=== PATIENT | male | born 1980 | race Caucasian/White ===

== ENCOUNTER 2017-08-19 06:39 | Inpatient (IN) | payer OTHER ==
[~2017-08-19] VITALS: Ht 188 cm; Wt 96.2 kg
[~2017-08-19 06:39] MED LIST: Z.0.NO CURRENT MEDS
[2017-08-19 11:20] VITALS: BP 129/95; PULSE 74; RESP 18; TEMP 98; O2SAT 100
[2017-08-19] MEDS ORDERED: ACETAMINOPHEN 325 MG TAB PO PRN (18:00)
[2017-08-19] MEDS ORDERED: ALUMINUM/MAGNESIUM/SIMETH 30 ML CUP PO PRN (18:00)
[2017-08-19] MEDS ORDERED: MAGNESIUM HYDROXIDE SUSP 30 ML CUP PO PRN (18:00)
[2017-08-19] MEDS ORDERED: hydrOXYzine HCL 50 MG TAB PO PRN (18:00)
[2017-08-19] MEDS ORDERED: diphenhydrAMINE HCL 50 MG/ML VIAL - HS PRN IM (18:00)
[2017-08-19 18:01] VITALS: BP 145/115; PULSE 75; RESP 17; TEMP 98.1; O2SAT 100
[2017-08-19] MEDS: NICOTINE 21 MG/24 HR PATCH T-DERMAL SCH (18:37)
[2017-08-20 05:49] VITALS: BP 134/86; PULSE 76; RESP 20; TEMP 97.5; O2SAT 100
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
[2017-08-20] MEDS: NICOTINE 21 MG/24 HR PATCH T-DERMAL SCH (09:06)
[2017-08-20 10:40] LABS: BICARBONATE 24.9 MEQ/L (21.0-32.0); BLOOD UREA NITROGEN 17 MG/DL (7-18); CALCIUM 9.8 MG/DL (8.5-10.1); CHLORIDE 107 MEQ/L (98-107); CREATININE 1.32 MG/DL (0.60-1.30); GLOMERULAR FILTRATION RATE 61 ML/MIN (>89); GLUCOSE,RANDOM 94 MG/DL (74-106); SODIUM (NA) 139 MEQ/L (136-145)
[2017-08-20 10:42] LABS: CHOLESTEROL 206 MG/DL (120-200)
[2017-08-20 10:44] LABS: CHOLESTEROL/ HDL RATIO 4.11 RATIO; HDL CHOLESTEROL 50.1 MG/DL (40.0-60.0); LDL CHOLESTEROL 104 MG/DL (0-99); TRIGLYCERIDES 258 MG/DL (42-150)
[2017-08-20 15:10] LABS: HEMOGLOBIN A1C 5.5 % (4.3-6.0)
[2017-08-20 17:00] VITALS: BP 147/87; PULSE 83; RESP 19; TEMP 98.7; O2SAT 98
[2017-08-20] MEDS: QUEtiapine FUMARATE 100 MG TAB PO SCH (20:26)
[2017-08-20] MEDS: REMOVE OLD NICOTINE PATCH T-DERMAL SCH (20:56)
[2017-08-21 05:46] VITALS: BP 131/83; PULSE 85; RESP 18; TEMP 98.7; O2SAT 99
[2017-08-21] MEDS: buPROPion HCL 100 MG SUSTAINED RELEASE TAB PO SCH (08:26)
[2017-08-21] MEDS: NICOTINE 21 MG/24 HR PATCH T-DERMAL SCH (08:27)
[2017-08-21 12:56] LABS: BICARBONATE 28.5 MEQ/L (21.0-32.0); CALCIUM 9.5 MG/DL (8.5-10.1); CREATININE 1.28 MG/DL (0.60-1.30)
--- NOTE | 2017-08-21 17:08 | HHI.PYPN ---
Subjective Remarks Patient was seen and case discussed with nursing. Patient describes his long history of polysubstance abuse with opiates being his drug of choice. He appears to be very interested in finally getting sober and is excited about rehabilitation at [facility]. His behaving well on the unit. Friendly, helping other patients eat dinner. Patient does the circumstances leading to his overdose and does not mention his legal trouble. Personality disorder a possibility in addition to possible bipolar disorder Mental Status Examination Appearance: Disheveled (mild) Consciousness: Alert Orientation: x4 Motor Activity: Normal gait, Other (no motor abnormalities noted) Speech: Unremarkable Language: Adequate Fund of Knowledge: Adequate Attention and Concentration: Adequate Memory: Unremarkable (grossly intact on clinical exam) Mood: Good Affect: Appropriate Thought Process & Associations: Logical, Linear Thought Content: Appropriate Hallucination Type: None Delusion Type: None Suicidal Ideation: No Suicidal Plan: No Suicidal Intention: No Homicidal Ideation: No Homicidal Plan: No Homicidal Intention: No Insight: Poor Judgment: Impulsive Results Labs Test 08/21/17 12:12 Blood Urea Nitrogen 13 MG/DL Creatinine 1.28 MG/DL Random Glucose 106 MG/DL Calcium Level 9.5 MG/DL Sodium Level 139 MEQ/L Potassium Level 3.9 MEQ/L Chloride Level 102 MEQ/L Carbon Dioxide Level 28.5 MEQ/L Anion Gap 9 MEQ/L Estimat Glomerular Filtration Rate 63 ML/MIN Vitals/IOs Vital Signs Date Time Temp Pulse Resp B/P (MAP) Pulse Ox O2 Delivery O2 Flow Rate FiO2 08/21/17 05:46 98.7 85 18 131/83 (99) 99 Assessment & Plan Problem List: (1) Adjustment disorder with mixed disturbance of emotions and conduct ICD Codes: F43.25 - Adjustment disorder with mixed disturbance of emotions and conduct (2) Cocaine abuse ICD Codes: F14.10 - Cocaine abuse, uncomplicated Assessment & Plan Personality disorder a possibility in addition to possible bipolar disorder. Continue current treatment Justification for Cont. Inpt. Patient will decompensate in a less restrictive setting Request HC Surrog/Guard Advoc?: Jon Sterling DO Aug 21, 2017 17:08
[2017-08-21] MEDS ORDERED: BISACODYL EC 5 MG TABEC PO PRN (18:15)
[2017-08-21 18:38] VITALS: BP 150/95; PULSE 75; RESP 18; TEMP 98.7; O2SAT 99
[2017-08-21] MEDS: diphenhydrAMINE HCL 50 MG CAP - HS PRN PO (20:29)
[2017-08-21] MEDS: QUEtiapine FUMARATE 100 MG TAB PO SCH (20:30)
[2017-08-21] MEDS: REMOVE OLD NICOTINE PATCH T-DERMAL SCH (20:30)
[2017-08-22] MEDS: diphenhydrAMINE HCL 50 MG CAP - HS PRN PO (04:58)
[2017-08-22 05:33] VITALS: BP 129/88; PULSE 85; RESP 17; TEMP 98.5; O2SAT 97
[2017-08-22] MEDS: buPROPion HCL 100 MG SUSTAINED RELEASE TAB PO SCH (08:20)
[2017-08-22] MEDS: NICOTINE 21 MG/24 HR PATCH T-DERMAL SCH (08:20)
--- NOTE | 2017-08-22 14:08 | HHI.PYPN ---
Subjective Remarks Patient was seen and case discussed with nursing. Patient insists that Vistaril is more effective for anxiety despite Atarax being the same medication. He says he wants to avoid benzodiazepines. Patient remains bright and cheerful. He is quite extroverted and social. He went to the groups and found that stimulating. Continues to state that he is not depressed and he is feeling "better." And no longer has suicidal ideation intent or plan. Remains intent on quitting substance use Mental Status Examination Appearance: Disheveled (mild) Consciousness: Alert Orientation: x4 Motor Activity: Normal gait, Other (no motor abnormalities noted) Speech: Unremarkable Language: Adequate Fund of Knowledge: Adequate Attention and Concentration: Adequate Memory: Unremarkable (grossly intact on clinical exam) Mood: Good Affect: Other (mildly elevated) Thought Process & Associations: Logical, Linear Thought Content: Appropriate Hallucination Type: None Delusion Type: None Suicidal Ideation: No Suicidal Plan: No Suicidal Intention: No Homicidal Ideation: No Homicidal Plan: No Homicidal Intention: No Insight: Poor Judgment: Impulsive Results Vitals/IOs Vital Signs Date Time Temp Pulse Resp B/P (MAP) Pulse Ox O2 Delivery O2 Flow Rate FiO2 08/22/17 08:02 08/22/17 05:33 98.5 85 17 97 Assessment & Plan Problem List: (1) Adjustment disorder with mixed disturbance of emotions and conduct ICD Codes: F43.25 - Adjustment disorder with mixed disturbance of emotions and conduct (2) Cocaine abuse ICD Codes: F14.10 - Cocaine abuse, uncomplicated Assessment & Plan Continue current treatment plan Justification for Cont. Inpt. Patient would decompensate in a less restrictive setting Request HC Surrog/Guard Advoc?: No Jon Silveira DO Aug 22, 2017 14:08
[2017-08-22 16:46] VITALS: BP 162/89; PULSE 90; RESP 18; TEMP 99.1; O2SAT 99
[2017-08-22] MEDS: QUEtiapine FUMARATE 100 MG TAB PO SCH (20:23)
[2017-08-22] MEDS: REMOVE OLD NICOTINE PATCH T-DERMAL SCH (20:23)
[2017-08-23 05:58] VITALS: BP 140/77; PULSE 72; RESP 18; TEMP 97.9; O2SAT 100
[2017-08-23] MEDS: buPROPion HCL 100 MG SUSTAINED RELEASE TAB PO SCH (08:34)
[2017-08-23] MEDS: NICOTINE 21 MG/24 HR PATCH T-DERMAL SCH (08:34)
--- NOTE | 2017-08-23 15:20 | HHI.PYPN ---
Subjective Remarks Patient seen and examined with nurse. Chart reviewed. Case discussed with nursing staff. No behavioral issues reported per nursing staff. On my examination today, patient is in much better spirits when compared to my interaction with him before the weekend. He describes his mood subjectively is much better today. He now says that his presenting overdose was a suicidal gesture with the goal of getting into some sort of chemical dependency treatment. He says that he knew there was a high likelihood of rescue when he made the attempt. He is future oriented now and interested in pursuing residential chemical dependency treatment if this can be arranged. Although interested in discharge as soon as possible, he is agreeable to remaining on the unit for an additional day if needed to arrange for transfer directly to a residential chemical dependency treatment facility. He denies suicidal or homicidal ideation at this time. No psychotic symptoms. Denies side effects from medications. No physical complaints. Review of Systems Except as stated in HPI: all other systems reviewed are Neg Mental Status Examination Appearance: Appropriate Consciousness: Alert Orientation: x4 Motor Activity: Normal gait, Other (no abnormal motor movements noted.) Speech: Unremarkable Language: Adequate Fund of Knowledge: Adequate Attention and Concentration: Adequate Memory: Unremarkable Mood: Good Affect: Appropriate (full and reactive) Thought Process & Associations: Logical, Linear Thought Content: Appropriate Hallucination Type: None Delusion Type: None Suicidal Ideation: No Suicidal Plan: No Suicidal Intention: No Homicidal Ideation: No Homicidal Plan: No Homicidal Intention: No Insight: Fair Judgment: Adequate (fair at best) Results Labs Labs reviewed. GFR remains decreased but stable. Vitals/IOs Vital Signs Date Time Temp Pulse Resp B/P (MAP) Pulse Ox O2 Delivery O2 Flow Rate FiO2 08/23/17 05:58 97.9 72 18 140/77 (98) 100 Assessment & Plan Problem List: (1) Adjustment disorder with mixed disturbance of emotions and conduct ICD Codes: F43.25 - Adjustment disorder with mixed disturbance of emotions and conduct (2) Cocaine abuse ICD Codes: F14.10 - Cocaine abuse, uncomplicated Assessment & Plan Continue current psychotropics as ordered. Continue to monitor on the inpatient unit. Continue other medications and care as ordered. Justification for Cont. Inpt. Risk for decompensation. Discharge Planning Case discussed with counselor. Jennifer is reviewing patient's case for possible admission to that facility. Anticipate discharge tomorrow, Wednesday. Request HC Surrog/Guard Advoc?: No Henri Harley MD Aug 23, 2017 15:20
[2017-08-23 18:04] VITALS: BP 153/94; PULSE 102; RESP 16; TEMP 99.2; O2SAT 99
[2017-08-23] MEDS: REMOVE OLD NICOTINE PATCH T-DERMAL SCH (21:00)
[2017-08-23] MEDS: diphenhydrAMINE HCL 50 MG CAP - HS PRN PO (21:28)
[2017-08-23] MEDS: QUEtiapine FUMARATE 100 MG TAB PO SCH (21:28)
[2017-08-24 06:07] VITALS: BP 141/73; PULSE 72; RESP 18; TEMP 98; O2SAT 98
[2017-08-24] MEDS: buPROPion HCL 100 MG SUSTAINED RELEASE TAB PO SCH (09:02)
[2017-08-24] MEDS: NICOTINE 21 MG/24 HR PATCH T-DERMAL SCH (09:03)
--- NOTE | 2017-08-24 11:10 | PD.TTN ---
Patient Problems 1. Discharge planning 2. Medication compliance 3. Knowledge deficit 4. Lack of coping skills Progress Toward Goals Provider Present: Dr. Mata Harley Provider Input: Dr. Harley's had his treatment team meeting to discuss patient's treatment plan, medication, and discharge. Patient is being discharged today. Patient will follow up with [facility] residential treatment program. Nurse(s) Input: Per patient's nurse Kaylee Jacobsen patient presents restless, guarded, denies suicidal and homicial ideation. Psychiatric Counselors Present: [facility] Input: Patient was seen on the unit. Patient presented anxious, agitated, restless, exit seeking, affect blunted. Patient's speech is clear, organized with pressure. Patient does not present internally stimulated or with any delusional content. Patient denies suicidal and homicidal ideation. Patient is medication compliant, eating and sleeping well. Patient is attempting to go to [facility] for inpatient residential treatment. Group Spec/RT/OT/RAMOS Present: RACHEL Strong Group Spec/RT/OT/RAMOS Input: Patient attends groups with fair participation. [facility]is [facility] Aug 24, 2017 11:10
--- NOTE | 2017-08-24 11:10 | PD.TTN ---
Patient Problems 1. Discharge planning 2. Medication compliance 3. Knowledge deficit 4. Lack of coping skills Progress Toward Goals Provider Present: Dr. Mata Harley Provider Input: Dr. Harley's had his treatment team meeting to discuss patient's treatment plan, medication, and discharge. Patient is being discharged today. Patient will follow up with [facility] residential treatment program. Nurse(s) Input: Per patient's nurse Kaylee Jacobsen patient presents restless, guarded, denies suicidal and homicial ideation. Psychiatric Counselors Present: Belkis [facility] Input: Patient was seen on the unit. Patient presented anxious, agitated, restless, exit seeking, affect blunted. Patient's speech is clear, organized with pressure. Patient does not present internally stimulated or with any delusional content. Patient denies suicidal and homicidal ideation. Patient is medication compliant, eating and sleeping well. Patient is attempting to go to [facility] for inpatient residential treatment. Group Spec/RT/OT/RAMOS Present: RACHEL Strong Group Spec/RT/OT/RAMOS Input: Patient attends groups with fair participation. Belkis Duran [facility] Aug 24, 2017 11:10
--- NOTE | 2017-08-24 11:10 | PD.TTN ---
Patient Problems 1. Discharge planning 2. Medication compliance 3. Knowledge deficit 4. Lack of coping skills Progress Toward Goals Provider Present: Dr. Mata Harley Provider Input: Dr. Harley's had his treatment team meeting to discuss patient's treatment plan, medication, and discharge. Patient is being discharged today. Patient will follow up with [facility] residential treatment program. Nurse(s) Input: Per patient's nurse Kaylee Jacobsen patient presents restless, guarded, denies suicidal and homicial ideation. Psychiatric Counselors Present: Belkis Duran [facility] Input: Patient was seen on the unit. Patient presented anxious, agitated, restless, exit seeking, affect blunted. Patient's speech is clear, organized with pressure. Patient does not present internally stimulated or with any delusional content. Patient denies suicidal and homicidal ideation. Patient is medication compliant, eating and sleeping well. Patient is attempting to go to [facility] for inpatient residential treatment. Group Spec/RT/OT/RAMOS Present: RACHEL Strong Group Spec/RT/OT/RAMOS Input: Patient attends groups with fair participation. Belkis Duran [facility] Aug 24, 2017 11:10
[2017-08-24] MEDS ORDERED: BUPR100CR PO (12:33)
[2017-08-24] MEDS ORDERED: QUET1TAB8 PO (12:33)
--- NOTE | 2017-08-24 12:34 | HHI.DS ---
Psychiatry Discharge Summary Inpatient Psychiatric care?: Yes Advance Directive: No Reason Not Provided: NA Mental Health AdvanceDirective: No Health Care Proxy: No Admission Admission Date Aug 19, 2017 at 09:58 Admission Diagnosis: (1) Adjustment disorder with mixed disturbance of emotions and conduct ICD Code: F43.25 - Adjustment disorder with mixed disturbance of emotions and conduct (2) Cocaine abuse ICD Code: F14.10 - Cocaine abuse, uncomplicated Brief History Mr. Bermudez is a 37-year-old male with a reported history of bipolar illness who presents in transfer from [facility] under a Macias act by [facility]'s office alleging that the patient took a handful of Seroquel pills to harm himself when his parents refuse to help him with financial issues. Notes from [facility] reviewed. Patient was medically cleared by the ED provider at outside hospital. Reviewing our own electronic medical record, I note that the patient was psychiatrically screened in 2011 following another overdose, although he denied that was suicidal at the time. He was sent to [facility]. Patient seen and examined with nurse. Chart reviewed. Case discussed with nursing staff. On my examination today, the patient presents with cluster B personality traits. He says that he took "a whole bottle of Seroquel because I felt backed into a corner. I owe money to the state and I don't want to go to alf. I asked a friend and my parents for money and they said no." He took the overdose impulsively but says that it was with suicidal intent "I wanted to check out." He says that he ruminates on suicide "all the time." He denies any suicidal plan or intent at this time however. He denies any urge to hurt himself on the inpatient psychiatric unit. Mood is depressed and anhedonic. He says that he has been unable to sleep at home because his mind is racing, although in context this sounds more like anxious rumination than manic racing thoughts. He says that when he does become depressed it is "unbearable, I don' t want to do anything." Endorses low energy and lack of motivation. No hypomanic or manic symptoms currently. The patient gives a questionable history of previous hypomanic or manic episodes, and it is difficult to disentangle from his substance use. He denies any audiovisual hallucinations at this time, and I can elicit no delusional material. The remainder of the psychiatric ROS is negative. The patient offers no physical complaints at this time. Past psychiatric history: The patient reports a history of bipolar illness. He reportedly follows with a provider by the name of will at [facility] in [place]. He is prescribed Wellbutrin, Seroquel and Vistaril, although his adherence with these agents is poor. He reports previous psychiatric admissions 3 years ago after he was "manic for a year" and also at age 19. He denies a history of suicide attempts. He reports previous trials of Depakote, which exacerbated jaw spasm, and lithium which made him feel like a zombie and experience constant suicidal ideation. Tobacco Use In Past 30 Days: 5 or More Cigarettes/Day Alcohol Use: Never Hospital Course Patient was admitted to a locked, inpatient psychiatric unit. Appropriate precautions were in place throughout patient's hospital stay. Patient seen and examined daily on the unit by psychiatry and also visited by counselor. Psychotropic medications were continued. Patient tolerated medications well without side effects. Patient had significant improvement in presenting psychiatric symptomatology. There was no evidence of any suicidality or homicidality on the inpatient unit. On the day of discharge: Patient seen and examined. Chart reviewed. Case discussed in treatment team. On my examination today, the patient is requesting discharge from the inpatient psychiatric unit today. Counselor informs me that [facility] still has not accepted the patient into their residential treatment program because of issues with the patient's insurer. I have discussed this with the patient, and it is his wish to leave the hospital today regardless of whether or not he proceeds directly to [facility]. He would like to retain the option of going there later on, and I have asked the counselor to include contact information for [facility] in patient's discharge paperwork. He denies any suicidal or homicidal ideation , intent or plan on direct questioning and contracts for safety. Mood is much improved versus admission and I can elicit no depressive or hypomanic/manic symptoms. No audiovisual hallucinations, and I can elicit no delusional material. He denies side effects from medications. No physical complaints. Weighing the acute, chronic, and protective factors and based on the available evidence, I basket maker to a reasonable degree of medical certainty that the patient is at low imminent risk of harm to self or others from a mental illness as defined under the Macias act and his level of function is adequate for outpatient care. He does not presently meet criteria for involuntary psychiatric hospitalization. Given that he is insisting on discharge from the inpatient unit today and given that he does not meet criteria for involuntary hospitalization, I must arrange for his discharge today with psychiatric follow- up as arranged by counselor. Substance use is likely a chronic risk factor for harm to self/others, and I have strongly recommended that the patient pursue chemical dependency evaluation and treatment. Patient is also to follow-up with primary care. I have counseled patient to return to the psychiatric emergency room for any concerning symptoms as part of a general safety plan Results Blood Pressure 141 / 73 Vital Signs Date Time Temp Pulse Resp B/P (MAP) Pulse Ox O2 Delivery O2 Flow Rate FiO2 08/24/17 06:07 98.0 72 18 141/73 (95) 98 Laboratory Results Test 08/20/17 09:48 Cholesterol Level 206 MG/DL (120-200) HDL Cholesterol 50.1 MG/DL (40.0-60.0) Hemoglobin A1c 5.5 % (4.3-6.0) LDL Cholesterol 104 MG/DL (0-99) Triglycerides Level 258 MG/DL (42-150) Summary of Procedures None done Imaging None done Pending results at discharge: No Medications # of Antipsychotic meds at D/C: 1 Approp Antipsych med options 1 - Minimum of three failed multiple trials of monotherapy. 2 - Documented plan to taper to monotherapy due to previous use of multiple meds OR cross-taper in progress at D/C. 3 - Documentation of augmentation of Clozapine. 4 - Justification other than those listed in allowable values 1-3, document here : Discharge Discharge Date: Aug 24, 2017 Discharge Diagnosis: (1) Adjustment disorder with mixed disturbance of emotions and conduct Diagnosis: Principal (resolved) ICD Code: F43.25 - Adjustment disorder with mixed disturbance of emotions and conduct (2) Cocaine abuse Diagnosis: Secondary (counseled to quit) ICD Code: F14.10 - Cocaine abuse, uncomplicated Pt Condition on Discharge: Stable Discharge Disposition: Discharge Home Discharge Instructions Diet Instructions: As Tolerated, No Restrictions Activities you can perform: Weight Bearing as Belinda Scheduled Appointment: as per counselor's notes New Orders: BASIC METABOLIC PROF - 1 Week New Medications: Bupropion HCl ER 12 HR (Wellbutrin SR 12 HR) 100 Mg Tab 100 MG PO DAILY for Mental Health for 10 Days, #10 TAB 2 Refills Quetiapine (Quetiapine) 100 Mg Tab 100 MG PO HS for Mental Health for 10 Days, TAB 2 Refills Discontinued Medications: Miscellaneous (No Current Meds) Misc Discharge Time <= 30 minutes Mental Status Examination Appearance: Appropriate Consciousness: Alert Orientation: x4 Motor Activity: Normal gait, Other (no motoric abnormalities noted) Speech: Unremarkable Language: Adequate Fund of Knowledge: Adequate Attention and Concentration: Adequate Memory: Unremarkable (grossly intact on clinical exam) Mood: Good Affect: Appropriate (remains full and reactive) Thought Process & Associations: Logical, Goal directed, Linear Thought Content: Appropriate Hallucination Type: None Delusion Type: None Suicidal Ideation: No Suicidal Plan: No Suicidal Intention: No Homicidal Ideation: No Homicidal Plan: No Homicidal Intention: No Insight: Fair Judgment: Adequate (fair at best) Discharge/Advance Care Plan Health Problems: (1) Adjustment disorder with mixed disturbance of emotions and conduct (2) Cocaine abuse Goals to promote your health * To prevent worsening of your condition and complications * To maintain your health at the optimal level Directions to meet your goals Take your medications as prescribed Follow your dietary instruction Follow activity as directed Keep your appointments as scheduled Take your immunizations and boosters as scheduled If your symptoms worsen call your PCP, if no PCP go to Urgent Care Center or Emergency Room For 17/05 questions related to your inpatient stay or results of tests pending at discharge, please contact Dr. Henri Harley at Smoking is Dangerous to Your Health. Avoid second hand smoking Henri Harley MD Aug 24, 2017 12:34
--- NOTE | 2017-08-24 12:34 | HHI.DS ---
Psychiatry Discharge Summary Inpatient Psychiatric care?: Yes Advance Directive: No Reason Not Provided: NA Mental Health AdvanceDirective: No Health Care Proxy: No Admission Admission Date Aug 19, 2017 at 09:58 Admission Diagnosis: (1) Adjustment disorder with mixed disturbance of emotions and conduct ICD Code: F43.25 - Adjustment disorder with mixed disturbance of emotions and conduct (2) Cocaine abuse ICD Code: F14.10 - Cocaine abuse, uncomplicated Brief History Mr. Bermudez is a 37-year-old male with a reported history of bipolar illness who presents in transfer from [facility] under a Macias act by [facility]'s office alleging that the patient took a handful of Seroquel pills to harm himself when his parents refuse to help him with financial issues. Notes from [facility] reviewed. Patient was medically cleared by the ED provider at outside hospital. Reviewing our own electronic medical record, I note that the patient was psychiatrically screened in 2011 following another overdose, although he denied that was suicidal at the time. He was sent to [facility]. Patient seen and examined with nurse. Chart reviewed. Case discussed with nursing staff. On my examination today, the patient presents with cluster B personality traits. He says that he took "a whole bottle of Seroquel because I felt backed into a corner. I owe money to the state and I don't want to go to [facility]. I asked a friend and my parents for money and they said no." He took the overdose impulsively but says that it was with suicidal intent "I wanted to check out." He says that he ruminates on suicide "all the time." He denies any suicidal plan or intent at this time however. He denies any urge to hurt himself on the inpatient psychiatric unit. Mood is depressed and anhedonic. He says that he has been unable to sleep at home because his mind is racing, although in context this sounds more like anxious rumination than manic racing thoughts. He says that when he does become depressed it is "unbearable, I don' t want to do anything." Endorses low energy and lack of motivation. No hypomanic or manic symptoms currently. The patient gives a questionable history of previous hypomanic or manic episodes, and it is difficult to disentangle from his substance use. He denies any audiovisual hallucinations at this time, and I can elicit no delusional material. The remainder of the psychiatric ROS is negative. The patient offers no physical complaints at this time. Past psychiatric history: The patient reports a history of bipolar illness. He reportedly follows with a provider by the name of will at [facility] in [place]. He is prescribed Wellbutrin, Seroquel and Vistaril, although his adherence with these agents is poor. He reports previous psychiatric admissions 3 years ago after he was "manic for a year" and also at age 19. He denies a history of suicide attempts. He reports previous trials of Depakote, which exacerbated jaw spasm, and lithium which made him feel like a zombie and experience constant suicidal ideation. Tobacco Use In Past 30 Days: 5 or More Cigarettes/Day Alcohol Use: Never Hospital Course Patient was admitted to a locked, inpatient psychiatric unit. Appropriate precautions were in place throughout patient's hospital stay. Patient seen and examined daily on the unit by psychiatry and also visited by counselor. Psychotropic medications were continued. Patient tolerated medications well without side effects. Patient had significant improvement in presenting psychiatric symptomatology. There was no evidence of any suicidality or homicidality on the inpatient unit. On the day of discharge: Patient seen and examined. Chart reviewed. Case discussed in treatment team. On my examination today, the patient is requesting discharge from the inpatient psychiatric unit today. Counselor informs me that [facility] still has not accepted the patient into their residential treatment program because of issues with the patient's insurer. I have discussed this with the patient, and it is his wish to leave the hospital today regardless of whether or not he proceeds directly to [facility]. He would like to retain the option of going there later on, and I have asked the counselor to include contact information for [facility] in patient's discharge paperwork. He denies any suicidal or homicidal ideation , intent or plan on direct questioning and contracts for safety. Mood is much improved versus admission and I can elicit no depressive or hypomanic/manic symptoms. No audiovisual hallucinations, and I can elicit no delusional material. He denies side effects from medications. No physical complaints. Weighing the acute, chronic, and protective factors and based on the available evidence, I embossing calender operator to a reasonable degree of medical certainty that the patient is at low imminent risk of harm to self or others from a mental illness as defined under the Macias act and his level of function is adequate for outpatient care. He does not presently meet criteria for involuntary psychiatric hospitalization. Given that he is insisting on discharge from the inpatient unit today and given that he does not meet criteria for involuntary hospitalization, I must arrange for his discharge today with psychiatric follow- up as arranged by counselor. Substance use is likely a chronic risk factor for harm to self/others, and I have strongly recommended that the patient pursue chemical dependency evaluation and treatment. Patient is also to follow-up with primary care. I have counseled patient to return to the psychiatric emergency room for any concerning symptoms as part of a general safety plan Results Blood Pressure 141 / 73 Vital Signs Date Time Temp Pulse Resp B/P (MAP) Pulse Ox O2 Delivery O2 Flow Rate FiO2 08/24/17 06:07 98.0 72 18 141/73 (95) 98 Laboratory Results Test 08/20/17 09:48 Cholesterol Level 206 MG/DL (120-200) HDL Cholesterol 50.1 MG/DL (40.0-60.0) Hemoglobin A1c 5.5 % (4.3-6.0) LDL Cholesterol 104 MG/DL (0-99) Triglycerides Level 258 MG/DL (42-150) Summary of Procedures None done Imaging None done Pending results at discharge: No Medications # of Antipsychotic meds at D/C: 1 Approp Antipsych med options 1 - Minimum of three failed multiple trials of monotherapy. 2 - Documented plan to taper to monotherapy due to previous use of multiple meds OR cross-taper in progress at D/C. 3 - Documentation of augmentation of Clozapine. 4 - Justification other than those listed in allowable values 1-3, document here : Discharge Discharge Date: Aug 24, 2017 Discharge Diagnosis: (1) Adjustment disorder with mixed disturbance of emotions and conduct Diagnosis: Principal (resolved) ICD Code: F43.25 - Adjustment disorder with mixed disturbance of emotions and conduct (2) Cocaine abuse Diagnosis: Secondary (counseled to quit) ICD Code: F14.10 - Cocaine abuse, uncomplicated Pt Condition on Discharge: Stable Discharge Disposition: Discharge Home Discharge Instructions Diet Instructions: As Tolerated, No Restrictions Activities you can perform: Weight Bearing as Belinda Scheduled Appointment: as per counselor's notes New Orders: BASIC METABOLIC PROF - 1 Week New Medications: Bupropion HCl ER 12 HR (Wellbutrin SR 12 HR) 100 Mg Tab 100 MG PO DAILY for Mental Health for 10 Days, #10 TAB 2 Refills Quetiapine (Quetiapine) 100 Mg Tab 100 MG PO HS for Mental Health for 10 Days, TAB 2 Refills Discontinued Medications: Miscellaneous (No Current Meds) Misc Discharge Time <= 30 minutes Mental Status Examination Appearance: Appropriate Consciousness: Alert Orientation: x4 Motor Activity: Normal gait, Other (no motoric abnormalities noted) Speech: Unremarkable Language: Adequate Fund of Knowledge: Adequate Attention and Concentration: Adequate Memory: Unremarkable (grossly intact on clinical exam) Mood: Good Affect: Appropriate (remains full and reactive) Thought Process & Associations: Logical, Goal directed, Linear Thought Content: Appropriate Hallucination Type: None Delusion Type: None Suicidal Ideation: No Suicidal Plan: No Suicidal Intention: No Homicidal Ideation: No Homicidal Plan: No Homicidal Intention: No Insight: Fair Judgment: Adequate (fair at best) Discharge/Advance Care Plan Health Problems: (1) Adjustment disorder with mixed disturbance of emotions and conduct (2) Cocaine abuse Goals to promote your health * To prevent worsening of your condition and complications * To maintain your health at the optimal level Directions to meet your goals Take your medications as prescribed Follow your dietary instruction Follow activity as directed Keep your appointments as scheduled Take your immunizations and boosters as scheduled If your symptoms worsen call your PCP, if no PCP go to Urgent Care Center or Emergency Room For 17/05 questions related to your inpatient stay or results of tests pending at discharge, please contact Dr. Henri Harley at Smoking is Dangerous to Your Health. Avoid second hand smoking Henri Harley MD Aug 24, 2017 12:34
== END 2017-08-24 15:15 | disposition home or self-care (01) | DRG 882 ==
LOC: H270 09:58 → H260 08-22 14:12
PROVIDERS: ADMIT Psychiatry & Neurology Psychiatry; ATTEND Psychiatry & Neurology Psychiatry
DX: F43.25 Adjustment disorder with mixed disturbance of emotions and conduct (principal); F14.10 Cocaine abuse, uncomplicated; F31.9 Bipolar disorder, unspecified
CPT/HCPCS: 80048; 80061; 83036; Q0163